=== PATIENT | female | born 1950 | race Caucasian/White ===

== ENCOUNTER 2017-09-21 16:01 | Observation (INO) ==
--- NOTE | 2017-09-21 16:46 | Emergency Department Note ---
Disposition Clinical Impression: Transient neurologic deficit, Hypercalcemia Disposition: Admitted As Inpatient Condition: Good Referrals: Kip Ruiz MD [Primary Care Provider] - Forms: ED Satisfaction Letter Time of Disposition: 18:04 Neuro HPI - General Chief Complaint: ED Neuro Symptoms/Deficit Stated Complaint: neuro Time Seen by Provider: 09/21/17 16:21 Source: patient Limitations: no limitations Nursing Notes Reviewed: Yes Vital Signs Reviewed: Yes - History of Present Illness HPI Narrative: 67-year-old female complains of neurologic symptoms deficit concerning the left side of her face and cheek area. Patient states that just over 3 hours ago she had onset of discomfort in the back of her head an neck on the left side of the tightness, and numbness to the left cheek. She states that the symptoms have actually been occurring over the past month intermittently. She states the area over her left eye felt really heavy. Patient has a history of prior workup for TIAs in the past for which she she states was unremarkable, as well as 2 prior MIs around 2004. Patient states she was on aspirin 325 daily until she started having kidney issues and was taken off her aspirin. - Related Data Home Medications: Home Medications Medication Instructions Recorded Confirmed Aspirin 81 mg PO DAILY 07/07/17 09/21/17 DULoxetine [Cymbalta] 30 mg PO DAILY 07/07/17 09/21/17 Levothyroxine Sodium [Levo-T] 100 mcg PO 0630 07/07/17 09/21/17 Simvastatin [Zocor] 20 mg PO HS 07/07/17 09/21/17 Cholecalciferol (Vitamin D3) 2,000 unit PO DAILY 09/21/17 09/21/17 [Vitamin D] Nitroglycerin [Nitrostat] 0.4 mg SL Q5M PRN 09/21/17 09/21/17 Allergies/Adverse Reactions: Allergies Allergy/AdvReac Type Severity Reaction Status Date / Time Penicillins Allergy See Verified 09/21/17 16:08 Comments Sulfa (Sulfonamide Allergy Hives Verified 09/21/17 16:08 Antibiotics) acetaminophen [From Vicodin] AdvReac Hives Verified 09/21/17 16:08 codeine AdvReac Vomiting Verified 09/21/17 16:08 hydrocodone [From Vicodin] AdvReac Hives Verified 09/21/17 16:08 All systems ED: reviewed and negative except as stated. Review of Systems: As Per HPI Constitutional: Reports: weakness. Denies: fever Eyes: Denies: eye pain ENT ED: Denies: congestion Cardiovascular: Denies: chest pain Respiratory: Denies: cough Gastrointestinal: Denies: abdominal pain Neurological: Reports: paresthesias. Denies: headache Past Medical History - Past Medical History Attestation: Yes The following information was validated with the patient. Source: patient, nursing notes reviewed Medical history: Reports: myocardial infarction, renal disease, thyroid disease , TIA Surgical history: Reports: hysterectomy Psychiatric history: Reports: no psych history - Social History Smoking Status: Former smoker Smokeless Tobacco Status: No Alcohol use: Reports: none Drug use: Reports: none Physical Exam Vital Signs Temperature 98.0 F 09/21/17 16:03 Pulse Rate 76 09/21/17 16:03 Respiratory Rate 16 09/21/17 16:03 Blood Pressure 163/109 09/21/17 16:03 O2 Sat by Pulse Oximetry 98 09/21/17 16:03 Temperature 98.0 F 09/21/17 16:03 Pulse Rate 76 09/21/17 16:03 Respiratory Rate 16 09/21/17 16:03 Blood Pressure 163/109 09/21/17 16:03 O2 Sat by Pulse Oximetry 98 09/21/17 16:03 Oxygen Delivery Oxygen Delivery Room Air CONSTITUTIONAL: Well-appearing; well-nourished; A&O X 3, in no apparent distress HEAD: Normocephalic; atraumatic EYES: PERRL, no scleral icterus NOSE: The nose is normal in appearance without rhinorrhea NECK: No JVD or distended neck veins RESP: Normal chest excursion with respiration; breath sounds clear and equal bilaterally; no wheezes, rhonchi, or rales CARD: Regular rhythm, without murmurs, rub or gallop ABD: Non-distended; non-tender, soft, without rigidity, rebound or guarding,no pulsatile mass CHEST: No pain with palpation SKIN: Normal for age and race; warm and dry without diaphoresis ; no apparent lesions EXTREMITIES: Pulses are 2 plus and equal times 4 extremities, no peripheral edema or calf muscle pain NEUROLOGICAL: Patient is alert and oriented times three. Cranial nerves III- XII are intact. Decreased in Sensory in the left cheek and left upper extremity to touch, but motor functions are intact. Strength is 5/5 for flexion and extension in all 4 extremities. Patellar DTRS are equal and intact. Finger to nose testing is equal and normal bilaterally. No dysdiadochokinesis - General Limitations: no limitations General appearance: alert, in no apparent distress Course - Reevaluation(s) Reevaluation #1: Social for lab clinically unremarkable with exception of hemoglobin of 15.8 hematocrit 49.1, and hypercalcemia 10.8 which puts it mildly elevated. Starting patient on IV fluid hydration. Patient states her symptoms are getting better right upper extremity no longer with numbness and sensation in her left cheek is improving. Time: 17:48 - Consultations Consultation #1: Consulted Dr. Miller neurology who recommends starting patient on daily aspirin , and admitted for further evaluation. He states he will see the patient in the morning. Time: 18:02 Consultation #2: Dr. Stoner the hospitalist has accepted patient for admission to a telemetry bed in stable condition Time: 19:45 Vital Signs Temperature 98.0 F 09/21/17 16:03 Pulse Rate 76 09/21/17 16:03 Respiratory Rate 16 09/21/17 16:03 Blood Pressure 163/109 09/21/17 16:03 O2 Sat by Pulse Oximetry 98 09/21/17 16:03 Temperature 98.0 F 09/21/17 16:03 Pulse Rate 76 09/21/17 18:37 Respiratory Rate 15 09/21/17 18:37 Blood Pressure 175/103 09/21/17 18:37 O2 Sat by Pulse Oximetry 98 09/21/17 18:37 Oxygen Delivery Oxygen Delivery Room Air Neuro Symptoms/Deficit - [facility] Narrative Medical decision making narrative: Patient with left-sided facial and left upper extremity neurologic deficits started greater than 3 hours prior to presentation to the emergency department as an NIH score of 2. Patient concern for possible CVA/stroke, TIA, but also keeping ACS/ND, UTI in the differential and will assess appropriately. Patient currently does not complain of chest pain or urinary symptoms of dysuria. Patient's glucose was measured bedside and patient's found to without hypoglycemia. Patient's lab workup was only significant for mild hypercalcemia at 10.8, and what appears to be an elevation of hemoglobin and hematocrit secondary to possible dehydration. Patient's EKG was nonischemic but patient does have T- wave inversion across V1 to V5. Patient still remains asymptomatic for chest pain, shortness of breath, or decrease in O2 saturations which would make me believe that pulmonary embolism is a concern. [place] PE is low risk for patient when calculated. Patient denies of following: Hemoptysis, unilateral leg swelling or leg pain, history of DVT or PE, no recent long distance travel, no recent history of treatment for malignancy, and No tachycardia. After discussion with Dr. Miller of neurology, he requests patient be admitted for further evaluation and he will see the patient in the morning. Patient to be placed on aspirin and already been given [address] Stoner the hospitalist has accepted patient for admission to a telemetry bed in stable condition - Lab Data Lab results reviewed: Yes I reviewed the patient's lab results. Lab results narrative: Short CBC 09/21/17 Range/Units 16:15 WBC 6.1 (4.3-11.1) K/mcL Hgb 15.5 H (11.5-15.4) g/dL Hct 49.1 H (35.3-44.9) % Plt Count 276 (140-400) K/mcL Neutrophils # 2.7 (1.6-8.9) K/mcL BMP 09/21/17 Range/Units 16:15 Sodium 138 (136-145) mEq/L Potassium 4.1 (3.5-5.1) mEq/L Chloride 102 (98-107) mEq/L Carbon Dioxide 28 (23-29) mEq/L BUN 14 (8-23) mg/dL Creatinine 1.02 (0.60-1.20) mg/dL Glucose 90 (70-105) mg/dL Calcium 10.8 H (8.6-10.3) mg/dL Cardiac Enzymes 09/21/17 Range/Units 16:15 Troponin I < 0.03 (< 0.04) ng/mL Urine 09/21/17 Range/Units 17:00 Urine Color Yellow (Yellow) Urine Clarity Clear (Clear) Urine pH 5.5 (5.0-8.0) pH Units Ur Specific [place] 1.026 H (1.010-1.025) Urine Protein Negative (Neg-Trace) mg/dL Urine Glucose (UA) Normal (Normal) mg/dL Result diagrams: 09/21/17 16:15 09/21/17 16:15 Lab Results 09/21/17 09/21/17 09/21/17 Range/Units 16:05 16:15 16:15 WBC 6.1 (4.3-11.1) K/mcL RBC 5.54 H (3.82-4.97) M/mcL Hgb 15.5 H (11.5-15.4) g/dL Hct 49.1 H (35.3-44.9) % MCV 88.6 (83.0-100.0) fL MCH 28.0 (28.0-33.3) pg MCHC 31.6 (31.6-35.5) g/dL RDW 12.5 (11.5-14.5) % Plt Count 276 (140-400) K/mcL MPV 10.0 (9.4-12.4) fL Immature Gran % 0.2 (0-4) % Seg Neutrophils % 44.0 % Lymphocytes % 40.2 % Monocytes % 8.9 % Eosinophils % 5.7 % Basophils % 1.0 % Neutrophils # 2.7 (1.6-8.9) K/mcL Lymphocytes # 2.5 (0.6-4.6) K/mcL Monocytes # 0.5 (0.0-1.3) K/mcL Eosinophils # 0.4 (0.0-0.6) K/mcL Basophils # 0.1 (0.0-0.2) K/mcL Nucleated RBCs/100 WBC 0.5 H (0) /100 WBC PT (9.4-12.1) Seconds INR APTT (26.0-36.0) Seconds Sodium 138 (136-145) mEq/L Potassium 4.1 (3.5-5.1) mEq/L Chloride 102 (98-107) mEq/L Carbon Dioxide 28 (23-29) mEq/L BUN 14 (8-23) mg/dL Creatinine 1.02 (0.60-1.20) mg/dL Est GFR ( Amer) > 60 (> 60) Est GFR (Non-Af Amer) 54 L (> 60) BUN/Creatinine Ratio 14 (6-26) Glucose 90 (70-105) mg/dL POC Glucose 96 H (58-89) Calculated Osmolality 286 (280-300) Calcium 10.8 H (8.6-10.3) mg/dL Troponin I < 0.03 (< 0.04) ng/mL Urine Color (Yellow) Urine Clarity (Clear) Urine pH (5.0-8.0) pH Units Ur Specific [place] (1.010-1.025) Urine Protein (Neg-Trace) mg/dL Urine Glucose (UA) (Normal) mg/dL Urine Ketones (Negative) mg/dL Urine Blood (Negative) Urine Nitrite (Negative) Urine Bilirubin (Negative) Urine Urobilinogen (Normal) mg/dL Ur Leukocyte Esterase (Negative) 09/21/17 09/21/17 09/21/17 Range/Units 16:20 16:34 17:00 WBC (4.3-11.1) K/mcL RBC (3.82-4.97) M/mcL Hgb (11.5-15.4) g/dL Hct (35.3-44.9) % MCV (83.0-100.0) fL MCH (28.0-33.3) pg MCHC (31.6-35.5) g/dL RDW (11.5-14.5) % Plt Count (140-400) K/mcL MPV (9.4-12.4) fL Immature Gran % (0-4) % Seg Neutrophils % % Lymphocytes % % Monocytes % % Eosinophils % % Basophils % % Neutrophils # (1.6-8.9) K/mcL Lymphocytes # (0.6-4.6) K/mcL Monocytes # (0.0-1.3) K/mcL Eosinophils # (0.0-0.6) K/mcL Basophils # (0.0-0.2) K/mcL Nucleated RBCs/100 WBC (0) /100 WBC PT 10.4 (9.4-12.1) Seconds INR 1.0 APTT 33.9 (26.0-36.0) Seconds Sodium (136-145) mEq/L Potassium (3.5-5.1) mEq/L Chloride (98-107) mEq/L Carbon Dioxide (23-29) mEq/L BUN (8-23) mg/dL Creatinine (0.60-1.20) mg/dL Est GFR ( Amer) (> 60) Est GFR (Non-Af Amer) (> 60) BUN/Creatinine Ratio (6-26) Glucose (70-105) mg/dL POC Glucose 91 H (58-89) Calculated Osmolality (280-300) Calcium (8.6-10.3) mg/dL Troponin I (< 0.04) ng/mL Urine Color Yellow (Yellow) Urine Clarity Clear (Clear) Urine pH 5.5 (5.0-8.0) pH Units Ur Specific [place] 1.026 H (1.010-1.025) Urine Protein Negative (Neg-Trace) mg/dL Urine Glucose (UA) Normal (Normal) mg/dL Urine Ketones Negative (Negative) mg/dL Urine Blood Negative (Negative) Urine Nitrite Negative (Negative) Urine Bilirubin Negative (Negative) Urine Urobilinogen Normal (Normal) mg/dL Ur Leukocyte Esterase Negative (Negative) - Radiology Data Radiology results reviewed: Yes I reviewed the patient's radiology results. Chest X-Ray 09/21/17 16:15 IMPRESSION: No acute process. D/ / Moe Shannon MD / Moe Shannon MD Interpreting Provider: Moe Shannon MD Head CT 09/21/17 16:33 IMPRESSION: No acute intracranial process identified. D/ / Thanh Casper MD / Thanh Casper MD Interpreting Provider: Thanh Casper MD - EKG Data EKG attestation: Yes I reviewed and interpreted this EKG. EKG results narrative: EKG taken 09/21/2017 at 1754 hrs. shows a sinus rhythm at a rate of 64 beats minute with no acute ST elevations or depressions in any leads, but has ST inversion across leads V1 to V5. No previous EKG for comparison NIH Stroke Scale - Level of Consciousness LOC: Alert - LOC Questions LOC Questions: Answers both correctly - LOC Commands LOC Commands: Performs both correctly - Best Gaze Best Gaze: Normal - Visual Visual: No visual loss - Facial Palsy Facial Palsy: Normal - Motor Arms Motor Arm-Left: No drift for 10 seconds Motor Arm-Right: No drift for 10 seconds - Motor Legs Motor Leg-Left: No drift for 5 seconds Motor Leg-Right: No drift for 5 seconds - Limb Ataxia Limb Ataxia: Absent of affected limb too weak to perform exam - Sensory Sensory: Mild to moderate loss, "not as sharp" - Best Language Best Language: No aphasia - Dysarthria Dysarthria: Normal - Extinction and Inattention Extinction and Inattention: Normal - NIHSS Total Score NIHSS Total Score: 1 TPA Checklist - LKW: 3-4.5 hrs Add. Warnings/Precautions Patient/family understanding: The patient/family members have been counseled and understood the risk, benefit , and alternatives of treatment.
[2017-09-21 16:53] LABS: Basophils # 0.1 K/mcL (0.0-0.2); Eosinophils # 0.4 K/mcL (0.0-0.6); Eosinophils % 5.7 %; Hematocrit 49.1 % (35.3-44.9); Hemoglobin 15.5 g/dL (11.5-15.4); Immature Granulocytes % 0.2 % (0-4); Lymphocytes # 2.5 K/mcL (0.6-4.6); Lymphocytes % 40.2 %; Mean Corpuscular HGB Conc 31.6 g/dL (31.6-35.5); Mean Corpuscular Volume 88.6 fL (83.0-100.0); Monocytes # 0.5 K/mcL (0.0-1.3); Monocytes % 8.9 %; Neutrophils # 2.7 K/mcL (1.6-8.9); Nucleated Red Blood Cells 0.5 /100 WBC (0); Platelet Count 276 K/mcL (140-400); Red Blood Count 5.54 M/mcL (3.82-4.97); Red Cell Distribution Width 12.5 % (11.5-14.5)
[2017-09-21 17:09] LABS: Troponin I < 0.03 ng/mL (< 0.04)
--- NOTE | 2017-09-21 17:11 | Emergency Department Note ---
Disposition Clinical Impression: Transient neurologic deficit, Hypercalcemia Disposition: Admitted As Inpatient Condition: Good Referrals: Kip Ruiz MD [Primary Care Provider] - Forms: ED Satisfaction Letter General Adult HPI - General Chief complaint: ED Neuro Symptoms/Deficit Stated complaint: neuro Time Seen by Provider: 09/21/17 16:21 Source: patient Limitations: no limitations - History of Present Illness Pain Scale: 0 - Related Data Home Medications Medication Instructions Recorded Confirmed Aspirin 81 mg PO DAILY 07/07/17 07/07/17 DULoxetine [Cymbalta] 30 mg PO DAILY 07/07/17 07/07/17 Levothyroxine Sodium [Levo-T] 100 mcg PO 0630 07/07/17 07/07/17 Simvastatin [Zocor] 20 mg PO HS 07/07/17 07/07/17 Previous Rx's Medication Instructions Recorded HYDROcodone/Acet 5/325 mg [[place] 1 tab PO Q6H PRN #28 tab 07/07/17 5-325 mg] Allergies Allergy/AdvReac Type Severity Reaction Status Date / Time Penicillins Allergy See Verified 09/21/17 16:08 Comments Sulfa (Sulfonamide Allergy Hives Verified 09/21/17 16:08 Antibiotics) acetaminophen [From Vicodin] AdvReac Hives Verified 09/21/17 16:08 codeine AdvReac Vomiting Verified 09/21/17 16:08 hydrocodone [From Vicodin] AdvReac Hives Verified 09/21/17 16:08 Constitutional: Reports: weakness. Denies: fever Eyes: Denies: eye pain ENT ED: Denies: congestion Cardiovascular: Denies: chest pain Respiratory: Denies: cough Gastrointestinal: Denies: abdominal pain Neurological: Reports: paresthesias. Denies: headache Past Medical History - Past Medical History Medical history: Reports: myocardial infarction, renal disease, thyroid disease , TIA Surgical history: Reports: hysterectomy Psychiatric history: Reports: no psych history - Social History Smoking Status: Former smoker Smokeless Tobacco Status: No Alcohol use: Reports: none Drug use: Reports: none Physical Exam - General Limitations: no limitations General appearance: alert, in no apparent distress Course Vital Signs Temperature 98.0 F 09/21/17 16:03 Pulse Rate 76 09/21/17 16:03 Respiratory Rate 16 09/21/17 16:03 Blood Pressure 163/109 09/21/17 16:03 O2 Sat by Pulse Oximetry 98 09/21/17 16:03 Temperature 98.0 F 09/21/17 16:03 Pulse Rate 76 09/21/17 16:03 Respiratory Rate 16 09/21/17 16:03 Blood Pressure 163/109 09/21/17 16:03 O2 Sat by Pulse Oximetry 98 09/21/17 16:03 Oxygen Delivery Oxygen Delivery Room Air Medical Decision Making - Lab Data Result diagrams: 09/21/17 16:15 09/21/17 16:15 Lab Results 09/21/17 09/21/17 09/21/17 Range/Units 16:05 16:15 16:15 WBC 6.1 (4.3-11.1) K/mcL RBC 5.54 H (3.82-4.97) M/mcL Hgb 15.5 H (11.5-15.4) g/dL Hct 49.1 H (35.3-44.9) % MCV 88.6 (83.0-100.0) fL MCH 28.0 (28.0-33.3) pg MCHC 31.6 (31.6-35.5) g/dL RDW 12.5 (11.5-14.5) % Plt Count 276 (140-400) K/mcL MPV 10.0 (9.4-12.4) fL Immature Gran % 0.2 (0-4) % Seg Neutrophils % 44.0 % Lymphocytes % 40.2 % Monocytes % 8.9 % Eosinophils % 5.7 % Basophils % 1.0 % Neutrophils # 2.7 (1.6-8.9) K/mcL Lymphocytes # 2.5 (0.6-4.6) K/mcL Monocytes # 0.5 (0.0-1.3) K/mcL Eosinophils # 0.4 (0.0-0.6) K/mcL Basophils # 0.1 (0.0-0.2) K/mcL Nucleated RBCs/100 WBC 0.5 H (0) /100 WBC PT (9.4-12.1) Seconds INR APTT (26.0-36.0) Seconds Sodium 138 (136-145) mEq/L Potassium 4.1 (3.5-5.1) mEq/L Chloride 102 (98-107) mEq/L Carbon Dioxide 28 (23-29) mEq/L BUN 14 (8-23) mg/dL Creatinine 1.02 (0.60-1.20) mg/dL Est GFR ( Amer) > 60 (> 60) Est GFR (Non-Af Amer) 54 L (> 60) BUN/Creatinine Ratio 14 (6-26) Glucose 90 (70-105) mg/dL POC Glucose 96 H (58-89) Calculated Osmolality 286 (280-300) Calcium 10.8 H (8.6-10.3) mg/dL Troponin I < 0.03 (< 0.04) ng/mL Urine Color (Yellow) Urine Clarity (Clear) Urine pH (5.0-8.0) pH Units Ur Specific [place] (1.010-1.025) Urine Protein (Neg-Trace) mg/dL Urine Glucose (UA) (Normal) mg/dL Urine Ketones (Negative) mg/dL Urine Blood (Negative) Urine Nitrite (Negative) Urine Bilirubin (Negative) Urine Urobilinogen (Normal) mg/dL Ur Leukocyte Esterase (Negative) 09/21/17 09/21/17 09/21/17 Range/Units 16:20 16:34 17:00 WBC (4.3-11.1) K/mcL RBC (3.82-4.97) M/mcL Hgb (11.5-15.4) g/dL Hct (35.3-44.9) % MCV (83.0-100.0) fL MCH (28.0-33.3) pg MCHC (31.6-35.5) g/dL RDW (11.5-14.5) % Plt Count (140-400) K/mcL MPV (9.4-12.4) fL Immature Gran % (0-4) % Seg Neutrophils % % Lymphocytes % % Monocytes % % Eosinophils % % Basophils % % Neutrophils # (1.6-8.9) K/mcL Lymphocytes # (0.6-4.6) K/mcL Monocytes # (0.0-1.3) K/mcL Eosinophils # (0.0-0.6) K/mcL Basophils # (0.0-0.2) K/mcL Nucleated RBCs/100 WBC (0) /100 WBC PT 10.4 (9.4-12.1) Seconds INR 1.0 APTT 33.9 (26.0-36.0) Seconds Sodium (136-145) mEq/L Potassium (3.5-5.1) mEq/L Chloride (98-107) mEq/L Carbon Dioxide (23-29) mEq/L BUN (8-23) mg/dL Creatinine (0.60-1.20) mg/dL Est GFR ( Amer) (> 60) Est GFR (Non-Af Amer) (> 60) BUN/Creatinine Ratio (6-26) Glucose (70-105) mg/dL POC Glucose 91 H (58-89) Calculated Osmolality (280-300) Calcium (8.6-10.3) mg/dL Troponin I (< 0.04) ng/mL Urine Color Yellow (Yellow) Urine Clarity Clear (Clear) Urine pH 5.5 (5.0-8.0) pH Units Ur Specific [place] 1.026 H (1.010-1.025) Urine Protein Negative (Neg-Trace) mg/dL Urine Glucose (UA) Normal (Normal) mg/dL Urine Ketones Negative (Negative) mg/dL Urine Blood Negative (Negative) Urine Nitrite Negative (Negative) Urine Bilirubin Negative (Negative) Urine Urobilinogen Normal (Normal) mg/dL Ur Leukocyte Esterase Negative (Negative) Attestation Statement - Attestation Attestation: I examined this patient and my medical decision-making was reviewed with the Resident Physician. I agree with the documented findings, disposition and treatment plan as described except to the extent set forth below. 67 year old female presents to the ED with complaints of left side facial numbness and tingling that has been going on inermittently for the past one month. Adelaida states that she does have a historoy of TIA. no obvious focal defeits. WE will do TIA workup and then consult with neurolgoy, but will likey discharg home with ASA and followup wiht neuro
[2017-09-21 17:12] LABS: BUN/Creatinine Ratio 14 (6-26); Blood Urea Nitrogen 14 mg/dL (8-23); Calcium 10.8 mg/dL (8.6-10.3); Carbon Dioxide 28 mEq/L (23-29); Chloride 102 mEq/L (98-107); Glucose 90 mg/dL (70-105); Osmolality,Calculated 286 (280-300); Potassium 4.1 mEq/L (3.5-5.1); Sodium 138 mEq/L (136-145); eGFR For African Americans > 60 (> 60); eGFR For Non-African Americans 54 (> 60)
[2017-09-21 17:24] LABS: Bilirubin,Urine Negative (Negative); Blood,Urine Negative (Negative); Clarity,Urine Clear (Clear); Color,Urine Yellow (Yellow); Glucose,Urine (UA) Normal (Normal); Ketones,Urine Negative (Negative); Leukocyte Esterase,Urine Negative (Negative); Nitrite,Urine Negative (Negative); PH,Urine 5.5 pH Units (5.0-8.0); Protein,Urine Negative (Neg-Trace); Specific Gravity,Urine 1.026 (1.010-1.025); Urobilinogen,Urine Normal (Normal)
[2017-09-21] MEDS ORDERED: 0.9 % Sodium Chloride 1,000 ML IVC ONE (17:40)
[2017-09-21] MEDS ORDERED: Aspirin 81 MG TAB.CHEW PO ONE (17:40)
[2017-09-21 17:46] LABS: Prothrombin Time 10.4 Seconds (9.4-12.1)
[2017-09-21 17:48] LABS: Activated Partial Thrombo Time 33.9 Seconds (26.0-36.0)
--- NOTE | 2017-09-21 21:08 | Internal Med History&Physical ---
Date of Encounter: 09/21/17 Time of Encounter: 21:08 Assessment and Plan (1) Transient neurologic deficit Current visit: Yes Status: Acute TIA -Swallow evaluation at bedside- PLAN: -CPP x 2 q 8 hr -EKG now and in AM -ASA -UA (2) Hyperlipidemia Current visit: Yes Status: Acute We will obtain FLP , and cont. Statin. Qualifiers: Qualified Code(s): E78.5 - Hyperlipidemia, unspecified (3) Hypothyroidism Current visit: Yes Status: Acute Obtain TSH and cont home meds. (4) DVT prophylaxis Current visit: Yes Status: Acute We will place SCDs Internal Medicine - H&P: HPI Chief complaint: Numbness Admitted From: Home Plans for Post Hospital Care: Home History of present illness: Ms. Bhardwaj is a 67 year old female with past medical history of hyperlipidemia and hypothyroidism who presented with 1 month history of intermittent discomfort in the back of her head an neck as well as tightness, and numbness to the left cheek. Patient has a history of prior workup for TIAs in the past for which she she states was unremarkable, CT scan of the head was unremarkable, arduous consulted and she was admitted for further evaluation and management of possible TIA. Past Med Surg Social Fam HX - Past Medical History Medical history: myocardial infarction, renal disease, thyroid disease, TIA Psychiatric history: no psych history - Past Surgical History Surgical History: hysterectomy - Social History Smoking Status: Former smoker Smokeless Tobacco Status: No Alcohol use: none Drug use: none - Family History Mother Living Status: Age at : 69 Hx Family Cardiac Disorders: Yes (chf) Hx Family Respiratory Disorders: Yes (copd) Internal Medicine - H&P: Meds Aspirin 81 mg PO DAILY 07/07/17 [History] DULoxetine [Cymbalta] 30 mg PO DAILY 07/07/17 [History] Levothyroxine Sodium [Levo-T] 100 mcg PO 0630 07/07/17 [History] Simvastatin [Zocor] 20 mg PO HS 07/07/17 [History] Cholecalciferol (Vitamin D3) [Vitamin D] 2,000 unit PO DAILY 09/21/17 [History] Nitroglycerin [Nitrostat] 0.4 mg SL Q5M PRN 09/21/17 [History] 3 Allergy/AdvReac Type Severity Reaction Status Date / Time Penicillins Allergy See Verified 09/21/17 16:08 Comments Sulfa (Sulfonamide Allergy Hives Verified 09/21/17 16:08 Antibiotics) acetaminophen [From Vicodin] AdvReac Hives Verified 09/21/17 16:08 codeine AdvReac Vomiting Verified 09/21/17 16:08 hydrocodone [From Vicodin] AdvReac Hives Verified 09/21/17 16:08 All Systems PM: A 10-system review of systems was performed and is negative for pertinent findings except as documented above in the HPI. - Constitutional Constitutional: no chills, no fever(s), no night sweats - Cardiovascular Cardiovascular ROS IM: no chest pain, no diaphoresis, no dyspnea, no lightheadedness, no palpitations, no syncope - Gastrointestinal Gastrointestinal: no abdominal pain, no diarrhea, no hematemesis, no hematochezia, no melena, no nausea, no vomiting - Genitourinary Genitourinary: no change in urinary stream, no dysuria, no flank pain, no hematuria - Musculoskeletal Musculoskeletal ROS IM: no numbness, no tingling - Neurological Neurological ROS: numbness, tingling, no confusion, no convulsions, no focal weakness, no tremor(s) - Constitutional Vitals: Temp Pulse Resp BP Pulse Ox 98 F 71 16 120/76 98 09/21/17 20:56 09/21/17 20:15 09/21/17 20:56 09/21/17 20:56 09/21/17 19:46 - Head Head exam: Present: atraumatic, normocephalic - Neck Neck exam general surgery: Present: supple, trachea midline. Absent: lymphadenopathy - Respiratory Respiratory exam: Present: CTAB. Absent: accessory muscle use, rales, rhonchi, wheezes - Extremities Exam Extremities exam: Present: warm, radial pulses palpable and symmetrical. Absent : calf tenderness, cyanotic, pedal edema - Neurological Exam Neurological exam: Present: CN II-XII intact, oriented X3, no focal deficits. Absent: pronater drift, facial droop, speech deficit Internal Med - H&P Results - Labs CBC & Chem 7: 09/21/17 16:15 09/21/17 16:15
[2017-09-21] MEDS ORDERED: Nitroglycerin 0.4 MG TAB.SUBL SL PRN (21:34)
[2017-09-21] MEDS ORDERED: Naloxone 0.4 MG/ML INJ IVP PRN (23:08)
[2017-09-21] MEDS ORDERED: Ondansetron 4 MG/2 ML VIAL IVP PRN (23:08)
[2017-09-21] MEDS ORDERED: *HR* HYDROcodone/Acet 5/325 mg TABLET PO PRN (23:08)
[2017-09-21] MEDS ORDERED: Acetaminophen 325 MG TABLET PO PRN (23:08)
[2017-09-22 01:32] LABS: Basophils # 0.1 K/mcL (0.0-0.2); Basophils % 1.1 %; Eosinophils # 0.3 K/mcL (0.0-0.6); Eosinophils % 5.7 %; Immature Granulocytes % 0.2 % (0-4); Lymphocytes # 2.4 K/mcL (0.6-4.6); Lymphocytes % 44.2 %; Mean Corpuscular Hemoglobin 28.1 pg (28.0-33.3); Mean Corpuscular Volume 87.8 fL (83.0-100.0); Monocytes # 0.5 K/mcL (0.0-1.3); Monocytes % 8.3 %; Neutrophils # 2.2 K/mcL (1.6-8.9); Platelet Count 209 K/mcL (140-400); Red Blood Count 4.67 M/mcL (3.82-4.97); Red Cell Distribution Width 12.6 % (11.5-14.5); Segmented Neutrophils % 40.5 %
[2017-09-22 01:40] LABS: Hemoglobin 13.1 g/dL (11.5-15.4)
[2017-09-22 01:52] LABS: Prothrombin Time 11.1 Seconds (9.4-12.1)
[2017-09-22 01:53] LABS: Alanine Aminotransferase 15 Units/L (7-52); Albumin/Globulin Ratio 1.8 (1.1-2.2); Alkaline Phosphatase 49 Units/L (34-104); Aspartate Amino Transferase 16 Units/L (13-39); BUN/Creatinine Ratio 16 (6-26); Bilirubin,Total 0.7 mg/dL (0.3-1.0); Blood Urea Nitrogen 16 mg/dL (8-23); Calcium 9.1 mg/dL (8.6-10.3); Carbon Dioxide 23 mEq/L (23-29); Chloride 106 mEq/L (98-107); Chol/HDL Ratio 5.1 (0-4.9); Cholesterol 213 mg/dL (< 200); Globulin 2.2 g/dL (2.4-3.5); Glucose 150 mg/dL (70-105); HDL Cholesterol 42 mg/dL (40-59); LDL Cholesterol,Calculated 129 mg/dL (0-99); Magnesium 1.9 mg/dL (1.6-2.6); Osmolality,Calculated 288 (280-300); Phosphorous 4.2 mg/dL (2.7-4.5); Potassium 3.9 mEq/L (3.5-5.1); Sodium 137 mEq/L (136-145); Total Protein 6.2 g/dL (6.4-8.9); Triglycerides 209 mg/dL (< 150); eGFR For African Americans > 60 (> 60); eGFR For Non-African Americans 58 (> 60)
[2017-09-22 01:54] LABS: Activated Partial Thrombo Time 33.2 Seconds (26.0-36.0)
[2017-09-22] MEDS: Cholecalciferol (D-3) 1,000 UNIT TABLET PO SCH (07:58)
[2017-09-22] MEDS: Aspirin 81 MG TAB.CHEW PO SCH (07:58)
--- NOTE | 2017-09-22 17:07 | Neurology - Consult Note ---
Date of Encounter: 09/22/17 Time of Encounter: 07:45 Assessment and Plan (1) Transient neurologic deficit Current Visit: Yes Status: Acute Issues symptoms are concerning off for TIA and though it could be related to the elevated blood pressure that she has off-and-on she does acknowledges that she is been under a lot of stress perhaps could be related. Suggest continue on antiplatelet therapy she is been getting a stroke workup. Continue to monitor for blood pressure and also for any arrhythmias other treatment is as per primary team. Patient may benefit from low-dose anxiolytic agent History of Present Illness HPI: Ms. Bhardwaj is a 67 year old female with past medical history of hyperlipidemia and hypothyroidism who presented with 1 month history of intermittent discomfort in the back of her head an neck as well as tightness, and numbness to the left cheek. Patient has a history of prior workup for TIAs in the past for which she she states was unremarkable, CT scan of the head was unremarkable, Past Med Surg Social Fam HX - Past Medical History Medical history: myocardial infarction, renal disease, thyroid disease, TIA Psychiatric history: no psych history - Past Surgical History Surgical History: hysterectomy - Social History Smoking Status: Former smoker Smokeless Tobacco Status: No Alcohol use: none Drug use: none - Family History Mother Living Status: Age at : 69 Hx Family Cardiac Disorders: Yes (chf) Hx Family Respiratory Disorders: Yes (copd) Medications and Allergies Aspirin 81 mg PO DAILY 07/07/17 [History] DULoxetine [Cymbalta] 30 mg PO DAILY 07/07/17 [History] Levothyroxine Sodium [Levo-T] 100 mcg PO 0630 07/07/17 [History] Simvastatin [Zocor] 20 mg PO HS 07/07/17 [History] Cholecalciferol (Vitamin D3) [Vitamin D] 2,000 unit PO DAILY 09/21/17 [History] Nitroglycerin [Nitrostat] 0.4 mg SL Q5M PRN 09/21/17 [History] 3 Allergy/AdvReac Type Severity Reaction Status Date / Time Penicillins Allergy See Verified 09/21/17 16:08 Comments Sulfa (Sulfonamide Allergy Hives Verified 09/21/17 16:08 Antibiotics) acetaminophen [From Vicodin] AdvReac Hives Verified 09/21/17 16:08 codeine AdvReac Vomiting Verified 09/21/17 16:08 hydrocodone [From Vicodin] AdvReac Hives Verified 09/21/17 16:08 All Systems: The remainder of the systems were reviewed and are negative Physical Examination - Vital Signs Vital Signs: Initial Vital Signs Temp Pulse Resp BP Pulse Ox 98.0 F 76 16 163/109 98 09/21/17 16:03 09/21/17 16:03 09/21/17 16:03 09/21/17 16:03 09/21/17 16:03 - Exam Exam: GENERAL: Comfortable in no acute distress HEENT: Normal LUNGS: CTA HEART: RRR, S1 S2 Audible, no murmur EXTREMITIES: No Pedal edema. DETAILED NEUROLOGICAL EXAMINATION: MENTAL STATUS: Oriented to person, place, date and situation. Memory: knows the President, Aware of recent events Recent Memory Intact Cranial Nerve Examination: CN - II: Visual Acuity, Field of Vision Normal, Fundus examination: No disk edema, Pupils- size shape reaction to light and accommodation: All normal. CN III, IV, : External ocular movements were intact, Pupils were reactive, Nodrooping of the eyelids CN V: Sensation over the face to light touch and pinprick all normal. Corneal reflexes not tested, jaw jerk normal. CN VII: No facial asymmetry, no flattening of nasolabial folds, no difficulty in closing the eyes, no loss of forehead wrinkles, no difficulty in eye-closure, frowning raising eyebrows. CNVIII: No significant hearing loss CN IX, X: Uvula centralized not deviated, Gag reflex: Not tested CN X1: Sternocleidomastoid, trapezius, normal or evidence of any weakness. CN X11: No Dysarthria, no wasting or fibrilation f tongue muscles, no deviation, tongue muscle strength normal. Motor examination: No hypertrophy, tone was normal, power grade 0-5 Upper limbs Proximal- No difficulty in lifting the arms above the head. Distal- Noweakness in distal muscles On formal testing 5/5 all over Lower limbs Proximal- No difficulty in getting up from the sitting position Distal- No difficulty in walking On formal testing 5/5 all over Coordination: [id number]-[id number] normal. Target pursuit normal finger tapping normal, Rapid alternating moment of wrist normal Sensory system: Superficial sensations- Touch normal. Pain- Pinprick, Temperature all normal, Deep sensation normal, Joint position sense normal. Cortical sensation, Tactile discrimination, localization and extinction all normal. Deep tendon reflexes. Symmetrical bilateral, No evidence of Babinski. No sign of meningeal irritation Gait Examination: Deferred - Constitutional General appearance: comfortable Results - Laboratory Findings CBC and BMP: 09/22/17 00:44 09/22/17 00:44 Abnormal lab findings: Abnormal lab results Nucleated RBCs/100 WBC 0.5 /100 WBC (0) H 09/21/17 16:15 Est GFR (Non-Af Amer) 58 (> 60) L 09/22/17 00:44 Glucose 150 mg/dL (70-105) H 09/22/17 00:44 POC Glucose 91 (58-89) H 09/21/17 16:20 Serum Total Protein 6.2 g/dL (6.4-8.9) L 09/22/17 00:44 Globulin 2.2 g/dL (2.4-3.5) L 09/22/17 00:44 Triglycerides 209 mg/dL (< 150) H 09/22/17 00:44 Cholesterol 213 mg/dL (< 200) H 09/22/17 00:44 LDL Cholesterol, Calc 129 mg/dL (0-99) H 09/22/17 00:44 VLDL Cholesterol, Calc 42 mg/dL (< 31) H 09/22/17 00:44 Cholesterol/HDL Ratio 5.1 (0-4.9) H 09/22/17 00:44 Ur Specific [place] 1.026 (1.010-1.025) H 09/21/17 17:00 Consult Discharge Plan - Plan Referrals: Kip Ruiz MD [Primary Care Provider] - 09/29/17 1:15 pm
--- NOTE | 2017-09-22 18:05 | Internal Med Progress Note ---
Date of Encounter: 09/22/17 Time of Encounter: 10:10 - Assessment and plan (1) Transient neurologic deficit Current Visit: Yes Status: Acute Assessment and plan: Patient reports approximately one month history of left-sided facial tightness and tingling, intermittent. She denies actual pain. She states that she was told to come to the emergency department by primary care for hypertension. Symptoms are most likely related to hypertension, they did resolve with nitroglycerin in the emergency department. She reports increased stress at home due to caring for her ill family member, as well as moving. Patient is also in school to become a realtor. Head CT was negative. Chest x-ray is negative. Patient had echocardiogram in May, that showed LVEF of 65%, mild LV DD and no significant valvular dysfunction. Patient has been evaluated by neurology who recommends continued antiplatelet therapy and possible low-dose anxiolytic. Patient has no symptoms or neurologic deficit at this time. Continue telemetry Continue aspirin Brain MRI, limited echo, bilateral carotid Dopplers ordered for tomorrow. Continue to monitor for safety and falls. (2) Hypercalcemia Current Visit: Yes Status: Resolved Assessment and plan: Resolved. (3) Hyperlipidemia Current Visit: Yes Status: Acute Assessment and plan: Cholesterol is 213, triglycerides are 209. Patient states that she is noncompliant with her statin. I have encouraged her to begin taking a can, as well as adding fish oil supplements. Patient verbalized agreement. Qualifiers: Qualified Code(s): E78.5 - Hyperlipidemia, unspecified (4) Hypothyroidism Current Visit: Yes Status: Acute Assessment and plan: Chronic. Continue home dose of levothyroxine. Qualifiers: Qualified Code(s): E03.9 - Hypothyroidism, unspecified (5) DVT prophylaxis Current Visit: Yes Status: Acute Assessment and plan: ALFRED hose ordered. Patient has been ambulatory in the room. - Time Spent With Patient less than 15 minutes - Subjective Interval history: Patient was seen and evaluated at bedside at 10:10 AM. She is alert, awake, able to carry on conversation. Patient reports hypertension recently, states that she began to feel disoriented, anxious, left face tingling and tightness that resolved with nitroglycerin in the emergency department. She reports similar symptoms in the past. We discussed her elevated triglycerides, she states that she is noncompliant with her statin. Encouraged her to start taking it again regularly. She denies any current symptoms, headache, nausea, vomiting, vision changes, abdominal pain, dizziness. - Constitutional Vitals: Temp Pulse Resp BP Pulse Ox 98.7 F 79 20 119/78 95 09/22/17 15:17 09/22/17 15:17 09/22/17 15:17 09/22/17 15:17 09/22/17 15:17 General appearance: Present: cooperative, A&O X 3, pleasant, no acute distress, answers questions appropriately - Head Head exam: Present: atraumatic, normal inspection, normocephalic - Eye Eye exam: Present: normal appearance, conjuntiva pink, sclera anicteric - Neck Neck exam general surgery: Present: normal inspection, supple, trachea midline. Absent: lymphadenopathy, tenderness - Respiratory Respiratory exam: Present: chest wall tenderness, CTAB. Absent: accessory muscle use, rales, respiratory distress, rhonchi, wheezes - Cardiovascular Cardiovascular exam: Present: RRR, +S1, +S2. Absent: diastolic murmur, gallop, rubs, systolic murmur - GI/Abdominal GI/Abdominal exam: Present: normal bowel sounds, soft. Absent: distended, hepatomegaly, tenderness - Extremities Exam Extremities exam: Present: normal capillary refill, normal inspection, warm, radial pulses palpable and symmetrical. Absent: calf tenderness, cyanotic, pedal edema, tenderness - Neurological Exam Neurological exam: Present: alert, oriented X3, no focal deficits. Absent: facial droop, speech deficit - Skin Skin exam: Present: dry, intact, normal color, warm. Absent: rash Internal Medicine: Result - Labs CBC & Chem 7: 09/22/17 00:44 09/22/17 00:44 Labs: Short CBC 09/22/17 Range/Units 00:44 WBC 5.4 (4.3-11.1) K/mcL Hgb 13.1 D (11.5-15.4) g/dL Hct 41.0 (35.3-44.9) % Plt Count 209 (140-400) K/mcL Neutrophils # 2.2 (1.6-8.9) K/mcL BMP 09/22/17 00:44 Sodium 137 Potassium 3.9 Chloride 106 Carbon Dioxide 23 BUN 16 Creatinine 0.97 Glucose 150 H Calcium 9.1 Cardiac Enzymes 09/22/17 09/22/17 09/22/17 Range/Units 00:44 04:58 11:05 Troponin I < 0.03 < 0.03 < 0.03 (< 0.04) ng/mL Liver Function 09/22/17 Range/Units 00:44 Total Bilirubin 0.7 (0.3-1.0) mg/dL AST 16 (13-39) Units/L ALT 15 (7-52) Units/L Alkaline Phosphatase 49 (34-104) Units/L Albumin 4.0 (3.5-5.7) g/dL - ABG Interpretation ABG results: PT/INR, D-dimer PT 11.1 Seconds (9.4-12.1) 09/22/17 00:44 Consult Discharge Plan - Plan Referrals: Kip Ruiz MD [Primary Care Provider] - 09/29/17 1:15 pm
[2017-09-22] MEDS: Acetaminophen 325 MG TABLET PO PRN (22:14)
[2017-09-23 06:02] LABS: Basophils # 0.1 K/mcL (0.0-0.2); Basophils % 1.3 %; Eosinophils # 0.4 K/mcL (0.0-0.6); Eosinophils % 6.3 %; Hemoglobin 14.2 g/dL (11.5-15.4); Immature Granulocytes % 0.2 % (0-4); Lymphocytes # 2.8 K/mcL (0.6-4.6); Lymphocytes % 44.8 %; Mean Corpuscular HGB Conc 32.3 g/dL (31.6-35.5); Mean Corpuscular Hemoglobin 28.5 pg (28.0-33.3); Mean Corpuscular Volume 88.2 fL (83.0-100.0); Monocytes # 0.6 K/mcL (0.0-1.3); Neutrophils # 2.3 K/mcL (1.6-8.9); Platelet Count 224 K/mcL (140-400); Red Blood Count 4.99 M/mcL (3.82-4.97); Red Cell Distribution Width 12.7 % (11.5-14.5); Segmented Neutrophils % 37.4 %
[2017-09-23 06:26] LABS: BUN/Creatinine Ratio 22 (6-26); Blood Urea Nitrogen 23 mg/dL (8-23); Calcium 9.7 mg/dL (8.6-10.3); Carbon Dioxide 28 mEq/L (23-29); Chloride 105 mEq/L (98-107); Glucose 103 mg/dL (70-105); Osmolality,Calculated 294 (280-300); Potassium 4.4 mEq/L (3.5-5.1); Sodium 140 mEq/L (136-145); eGFR For African Americans > 60 (> 60); eGFR For Non-African Americans 52 (> 60)
--- NOTE | 2017-09-23 06:37 | Electrocardiograph Report ---
[place] [id number] Test Date: 2017-09-21 Pat Name: Yulissa Bhardwaj Department: 103 Room: 3B24 Gender: F Project Associate: : 1950 Requested By: Refugio Archuleta Order Number: [id number] Reading MD: Jerrod Pacheco MD Measurements Intervals [place] Rate: 64 P: 56 MS: 176 QRS: -60 QRSD: 102 T: 20 QT: 424 QTc: 433 Interpretive Statements SINUS RHYTHM Poor R wave progression INCOMPLETE RIGHT BUNDLE BRANCH BLOCK LEFT ANTERIOR FASCICULAR BLOCK Electronically Signed On 09-23-2017 6:35:47 EDT by Jerrod Pacheco MD
[2017-09-23] MEDS: Acetaminophen 325 MG TABLET PO PRN (08:38)
[2017-09-23] MEDS: Aspirin 81 MG TAB.CHEW PO SCH (08:38)
[2017-09-23] MEDS: Cholecalciferol (D-3) 1,000 UNIT TABLET PO SCH (08:38)
[2017-09-23 15:12] VITALS: BP 128/82
--- NOTE | 2017-09-23 16:00 | Discharge Summary ---
Date of Encounter: 09/23/17 Time of Encounter: 10:45 - Discharge Diagnosis (1) Transient neurologic deficit Priority: Primary Status: Acute Comments: Patient reports approximately one month history of left-sided facial tightness and tingling, intermittent. She denies pain. Symptoms are most likely related to hypertension, they did resolve with nitroglycerin in the emergency department. She reports increased stress at home due to caring for her ill family member, as well as moving. Patient is also in school to become a realtor. Head CT was negative. Chest x-ray is negative. Limited echo showed an LVEF 60- 65% with normal RV structure and function and no evidence of PFO. Carotids showed minimal nonstenotic plaque on the right, normal on the left. Patient has been evaluated by neurology who recommends continued antiplatelet therapy and possible low-dose anxiolytic. Patient has no symptoms or neurologic deficit at this time. No focal deficits. Symptoms have resolved. (2) Hypercalcemia Priority: Secondary Status: Resolved (3) Hyperlipidemia Priority: Secondary Status: Acute Comments: Chronic. Continue statin. Patient has been largely noncompliant, we discussed the importance of continuing therapy at nighttime. Qualifiers: Qualified Code(s): E78.5 - Hyperlipidemia, unspecified (4) Hypothyroidism Priority: Secondary Status: Acute Comments: Chronic. Continue home medication. Qualifiers: Qualified Code(s): E03.9 - Hypothyroidism, unspecified (5) DVT prophylaxis Priority: Secondary Status: Acute Comments: ALFRED macias ordered. Patient has been ambulatory in the room. Hospital course: Ms. Bhardwaj is a 67 year old female with PMH of HLD and HTN who presented to the ED for evaluation of HTN and left facial tightness. All testing was negative , all imaging negative. BP has been stable and WNL since admission. Pt isunder a lot of stress due to school, taking care of her father with dementia, and moving. I believe that the left facial numbness/neurological symptoms was due to HTN and stress. Pt has been encouraged to restart her statin and to take ASA daily. Pt denies symptoms and she is stable and appropriate for discharge. - Time Spent with Patient Total time spent providing and/or coordinating discharge services: Less than 30 minutes - Discharge Medications Prescriptions: Aspirin 81 mg PO DAILY #30 tab.chew Simvastatin [Zocor] 20 mg PO HS #30 tablet Home Medications: DULoxetine [Cymbalta] 30 mg PO DAILY 01/09/18 [History] Levothyroxine Sodium [Levo-T] 100 mcg PO 0630 07/07/17 [History] Cholecalciferol (Vitamin D3) [Vitamin D3] 2,000 unit PO DAILY 09/21/17 [History] Nitroglycerin [Nitrostat] 0.4 mg SL Q5M PRN 09/21/17 [History] Aspirin 81 mg PO DAILY #30 tab.chew 09/23/17 [Rx] Simvastatin [Zocor] 20 mg PO HS #30 tablet 09/23/17 [Rx] Allergies/Adverse Reactions: 3 Allergy/AdvReac Type Severity Reaction Status Date / Time Penicillins Allergy See Verified 09/21/17 16:08 Comments Sulfa (Sulfonamide Allergy Hives Verified 09/21/17 16:08 Antibiotics) acetaminophen [From Vicodin] AdvReac Hives Verified 09/21/17 16:08 codeine AdvReac Vomiting Verified 09/21/17 16:08 hydrocodone [From Vicodin] AdvReac Hives Verified 09/21/17 16:08 Date of admission: 09/21/17 20:25 Primary care physician: Kip Ruiz Discharging clinician: Macrina Walker Anticipated date of discharge: 09/23/17 - Constitutional Vitals: Temp Pulse Resp BP Pulse Ox 98.7 F 73 16 128/82 96 09/23/17 15:11 09/23/17 15:11 09/23/17 15:11 09/23/17 15:11 09/23/17 15:11 General appearance: Present: cooperative, A&O X 3, pleasant, no acute distress, answers questions appropriately - Head Head exam: Present: atraumatic, normal inspection, normocephalic - Eye Eye exam: Present: normal appearance, conjuntiva pink, sclera anicteric - Neck Neck exam general surgery: Present: supple, trachea midline. Absent: tenderness - Respiratory Respiratory exam: Present: CTAB. Absent: accessory muscle use, chest wall tenderness, rales, respiratory distress, rhonchi, wheezes - Cardiovascular Cardiovascular exam: Present: RRR, +S1, +S2. Absent: diastolic murmur, gallop, rubs, systolic murmur - GI/Abdominal GI/Abdominal exam: Present: normal bowel sounds, soft. Absent: distended, hepatomegaly, tenderness - Extremities Exam Extremities exam: Present: normal capillary refill, normal inspection, warm, radial pulses palpable and symmetrical. Absent: calf tenderness, cyanotic, pedal edema, tenderness - Neurological Exam Neurological exam: Present: alert, oriented X3, no focal deficits. Absent: facial droop, speech deficit - Skin Skin exam: Present: dry, intact, normal color, warm. Absent: rash - Patient Status Disposition: Home, Self-Care Condition: Good Functional capacity at discharge: independent ambulation Overall status at discharge: patient is back to baseline - Discharge Instructions Follow Up With: Kip Ruiz MD [Primary Care Provider] - 09/29/17 1:15 pm Additional Instructions: Please try to monitor your blood pressure at least 2-3x/week and take the readings to your PCP If your blood pressure becomes high again and your face becomes tight again, you need to seek treatment. Take your statin and aspirin daily. Keep your statin on your nightstand and take it when you go to bed. REsume your normal activities as tolerated and return to your normal diet. - Diet and Activity Activity: resume usual activities as tolerated Diet: low fat, low cholesterol
--- NOTE | 2017-09-23 17:04 | Neurology Progress Note ---
Date of Encounter: 09/23/17 Time of Encounter: 07:20 Assessment and Plan (1) Transient neurologic deficit Current Visit: Yes Status: Acute Patient's symptoms seems to resolve the does not fit to the typical pattern of a TIA. MRI of the brain also did not show any evidence of acute infarct. Patient did have a mild headaches that could be related to the sinus infection. She also has underlying anxiety and at fluctuating blood pressure perhaps the reason for her symptoms. Patient is on antiplatelet therapy suggested to continue. From neurology standpoint she is a stable and could be discharged with follow-up with her primary care physician Subjective Interval history: Patient seems to be due to doing well except that she did have a mild headache suspect could be related to the medication side effect no focal findings on examination. MRI of the brain did not show any acute intracranial abnormality. There is evidence of some sinus disease perhaps could be the reason for her headaches Objective - Constitutional Vitals: Temp Pulse Resp BP Pulse Ox 98.7 F 73 16 128/82 96 09/23/17 15:11 09/23/17 15:11 09/23/17 15:11 09/23/17 15:11 09/23/17 15:11 - Neurological Exam Sensorimotor examination: Present: other (Nonfocal neurological examination) Results - Laboratory Findings CBC and BMP: 09/23/17 04:35 09/23/17 04:35 Abnormal lab findings: Abnormal lab results RBC 4.99 M/mcL (3.82-4.97) H 09/23/17 04:35 Nucleated RBCs/100 WBC 0.5 /100 WBC (0) H 09/21/17 16:15 Est GFR (Non-Af Amer) 52 (> 60) L 09/23/17 04:35 POC Glucose 91 (58-89) H 09/21/17 16:20 Serum Total Protein 6.2 g/dL (6.4-8.9) L 09/22/17 00:44 Globulin 2.2 g/dL (2.4-3.5) L 09/22/17 00:44 Triglycerides 209 mg/dL (< 150) H 09/22/17 00:44 Cholesterol 213 mg/dL (< 200) H 09/22/17 00:44 LDL Cholesterol, Calc 129 mg/dL (0-99) H 09/22/17 00:44 VLDL Cholesterol, Calc 42 mg/dL (< 31) H 09/22/17 00:44 Cholesterol/HDL Ratio 5.1 (0-4.9) H 09/22/17 00:44 Ur Specific [place] 1.026 (1.010-1.025) H 09/21/17 17:00 Consult Discharge Plan - Plan Additional Instructions: Please try to monitor your blood pressure at least 2-3x/week and take the readings to your PCP If your blood pressure becomes high again and your face becomes tight again, you need to seek treatment. Take your statin and aspirin daily. Keep your statin on your nightstand and take it when you go to bed. REsume your normal activities as tolerated and return to your normal diet. Referrals: Kip Ruiz MD [Primary Care Provider] - 09/29/17 1:15 pm Prescriptions: Aspirin 81 mg PO DAILY #30 tab.chew Simvastatin [Zocor] 20 mg PO HS #30 tablet
== END 2017-09-23 17:30 | disposition home or self-care (01) ==
LOC: EMEROO 16:01 → 3BNU 16:01
PROVIDERS: ADMIT Internal Medicine Nephrology; ATTEND Registered Nurse